=== PATIENT | male | born 1955 | race Caucasian/White ===

== ENCOUNTER → 2019-04-07 11:20 | Outpatient (CLI) | payer OTHER, SELFPAY | PROVIDERS: Referring Provider Urology; Visit Provider Urology | DX: R97.20 Elevated prostate specific antigen [PSA] (principal) | CPT/HCPCS: 36415; 84153 ==

== ENCOUNTER → 2019-04-11 11:37 | Outpatient (CLI) | payer OTHER, SELFPAY ==
--- NOTE | 2019-04-11 11:41 | RAD_ITS ---
STUDY: X-RAY - SOFT TISSUE NECK REASON FOR EXAM: Male, 63 years old. Obstructive sleep apnea. TECHNIQUE: AP and lateral view(s) of the neck were obtained. COMPARISON: None. FINDINGS: The airway from the posterior base of the tongue to the anterior C3 vertebrae measures 4 mm. Normal epiglottis. Normal visualized subglottic tracheal air column. Normal prevertebral soft tissue structures. Normal visualized osseous structures. The soft tissue structures are unremarkable. RAD/Neck for Soft Tissue IMPRESSION: Narrowing of the airway from the base of the tongue to the anterior C3 vertebrae measuring 4 mm. Electronically Signed: Robbie To, at 13:15 EDT , Service support ,
== END ==
PROVIDERS: Referring Provider Otolaryngology Otolaryngology/Facial Plastic Surgery; Visit Provider Otolaryngology Otolaryngology/Facial Plastic Surgery
DX: G47.33 Obstructive sleep apnea (adult) (pediatric) (principal); R06.83 Snoring
CPT/HCPCS: 70360

== ENCOUNTER → 2019-04-15 12:14 | Outpatient (CLI) | payer OTHER, SELFPAY ==
--- NOTE | 2019-04-15 12:19 | MRI_ITS ---
STUDY: MRI PELVIS/PROSTATE, WITH AND WITHOUT CONTRAST REASON FOR EXAM: Male, 63 years old. Elevated PSA. Prior negative prostate biopsy. TECHNIQUE: Multisequence multiplanar MRI of the pelvis was performed utilizing multi parametric technique including high-resolution small FOV imaging of the prostate, diffusion-weighted imaging, and postcontrast enhancement. IV contrast 15 mL Dot[place]. COMPARISON: None. FINDINGS: Body wall soft tissues: Small inguinal lymph nodes, none pathologically enlarged. Moderately large right hydrocele with apparent mild thickening of the wall the right hemiscrotum. Minimal hydrocele on the left. Normal inguinal canal contents. Unremarkable appearance of each testis. Within the inferior aspect of the right gluteal crease, (right posterior perianal) within the subcutaneous fat,, there is a curvilinear region of T2 hyperintensity and enhancement measuring approximately 3.2 cm in length, 7 mm in thickness. This has features consistent with residual of fistula, without defined fluid in the tract, without abscess. In the same region more medially, there is an additional slender T2 hyperintense enhancing tract that measures approximately 3.2 cm in length, 7 mm in thickness which penetrates the right posterior-lateral margin of the anal wall into the interstitial disease of the anal sphincter, surfacing of the gluteal crease posterior to the anus. This also has features consistent with residual fistula without defined fluid of the tract, without abscess. Osseous structures: There are no visualized lytic or blastic lesions. Mild degenerative changes of the SI joints. Small and large bowel: Limited evaluation. Evaluated loops of small and large bowel exhibits no acute process. There is mild circumferential thickening of the wall of the sigmoid colon and rectum, mild diverticulosis of the sigmoid, without apparent inflammation in the adjacent fat, chronic changes. Urinary tract: There is circumferential thickening of wall the urinary bladder with trabeculation and a pattern most consistent with detrusor muscle hypertrophy in the setting of prostatomegaly. Distal ureters normal. Lymphadenopathy: Right iliac chain lymph node 10 x 7 mm. Left iliac chain lymph node 10 x 6 mm. No perirectal lymph nodes are apparent. Prostate: Prostatomegaly, bulging into the base of the urinary bladder. Prostate dimensions craniocaudal 5.9 cm, anterior-posterior 4.46 cm, transverse 5.6 cm. The prostate capsule is preserved. Normal neurovascular bundles. Normal appearance of the seminal vesicles. There are features of BPH within the central prostate. -Right apical gland, posterior peripheral zone, T2 hypointense focus measuring approximately 13.5 mm anterior-posterior, 12.5 mm transverse, and 5.8 mm craniocaudal. Circumscribed margins. On high B value diffusion-weighted imaging this focus exhibits intermediate diffusion hyperintensity, intermediate hypointensity on ADC with postcontrast enhancement. PI-RADS Category 3. -Within the base of the gland with left posterior peripheral zone, ill-defined lenticular shaped region of T2 hypointensity, with corresponding lenticular shaped perfusion intermediate hyperintensity, and intermediate hypointensity on ADC. This region measures approximately 14 mm craniocaudal, 5.2 mm anterior-posterior, and 10 mm transverse. PI-RADS Category 3. -Anterior fibromuscular stroma appears unremarkable. -The base of the gland, right posterior transitional zone there is an ill-defined region of heterogeneous T2 hypointensity without defined borders. This region exhibits diffusion hyperintensity and hypointensity on ADC measuring up to 2.6 cm transverse, 1.1 cm anterior-posterior. The craniocaudal dimension cannot be reliably measured. This region exhibits nonspecific heterogeneous enhancement. PI-RADS Category 4. MRI/Pelvis W/WO Contrast IMPRESSION: 1. Multiple suspicious regions as described above within the prostate gland. The single most discrete T2 hypointense lesion lies in the right apical gland, posterior peripheral zone, with a classification of PI-RADS Category 3. The largest lesion on diffusion/ADC lies at the base of the gland on the right within the transitional zone, indistinct heterogeneous T2 hypointensity, greatest dimension 2.6 cm. PI-RADS Category 4. An additional small lenticular lesion within the base of the gland left posterior peripheral zone is rather indistinct on T2-weighted imaging and most conspicuous on diffusion/ADC. 2. Overall classification, PI-RADS Category 4. 3. Solitary external iliac chain lymph nodes are present on the right and the left. The lymph nodes are not enlarged. Nonspecific. Electronically Signed: Kenrick Cox MD at 9:16 EDT Tel , Service support ,
[2019-04-15 12:45] LABS: CREATININE FINGERSTICK 0.9 mg/dL (0.70-1.30); EGFR FINGERSTICK > 60.0000 mL/min (>60)
== END ==
PROVIDERS: Referring Provider Urology; Visit Provider Urology
DX: R97.20 Elevated prostate specific antigen [PSA] (principal)
CPT/HCPCS: 72197; A9575

== ENCOUNTER → 2019-08-11 10:08 | Outpatient (CLI) | payer OTHER, SELFPAY ==
[2019-08-11 11:37] LABS: PSA,Total- Diagnostic 3.43 ng/mL (0.0-4.0)
== END ==
PROVIDERS: Referring Provider Urology; Visit Provider Urology
DX: R97.20 Elevated prostate specific antigen [PSA] (principal)
CPT/HCPCS: 36415; 84153

== ENCOUNTER → 2020-01-27 11:11 | Outpatient (CLI) | payer OTHER, SELFPAY ==
[2020-01-27 12:13] LABS: PSA,Total- Diagnostic 3.42 ng/mL (0.0-4.0)
== END ==
PROVIDERS: Referring Provider Urology; Visit Provider Urology
DX: R97.20 Elevated prostate specific antigen [PSA] (principal)
CPT/HCPCS: 36415; 84153

== ENCOUNTER → 2020-08-02 12:35 | Outpatient (CLI) | payer OTHER, SELFPAY ==
[2020-08-02 15:08] LABS: PSA,Total- Diagnostic 2.46 ng/mL (0.0-4.0)
== END ==
PROVIDERS: Referring Provider Urology; Visit Provider Urology
DX: N40.1 Benign prostatic hyperplasia with lower urinary tract symptoms (principal)
CPT/HCPCS: 36415; 84153

== ENCOUNTER → 2021-08-04 12:29 | Outpatient (CLI) | payer OTHER, SELFPAY ==
[2021-08-04 15:11] LABS: PSA,Total- Diagnostic 2.06 ng/mL (0.0-4.0)
== END ==
PROVIDERS: PCP Student in an Organized Health Care Education/Training Program; Visit Provider Urology
DX: R97.20 Elevated prostate specific antigen [PSA] (principal)
CPT/HCPCS: 36415; 84153

== ENCOUNTER → 2022-08-21 | Outpatient (CLI) | payer MEDICARE, BC, SELFPAY ==
[2022-08-21 13:06] LABS: PSA,Total - Annual Screen 3.25 ng/mL (0.00-4.00)
== END | disposition home or self-care (01) ==
LOC: LAB 12:14
PROVIDERS: Referring Provider Urology; Visit Provider Urology
DX: Z12.5 Encounter for screening for malignant neoplasm of prostate (principal)
CPT/HCPCS: 36415; 84153; G0103

== ENCOUNTER → 2023-11-30 | Outpatient (CLI) | payer MEDICARE, BC, SELFPAY ==
[2023-11-30 13:13] LABS: PSA,Total- Diagnostic 2.61 ng/mL (0.0-4.0)
== END | disposition home or self-care (01) ==
LOC: LAB 11:47
PROVIDERS: Referring Provider Urology; Visit Provider Urology
DX: N40.1 Benign prostatic hyperplasia with lower urinary tract symptoms (principal)
CPT/HCPCS: 36415; 84153